=== PATIENT | female | born 1955 | race Caucasian/White ===

== ENCOUNTER 2023-05-10 10:36 | Outpatient (CLI) | payer MEDICARE, OTHER | END 2023-05-10 10:37 | disposition home or self-care (01) | LOC: CSHRAD 10:36 | PROVIDERS: ATTEND Neurological Surgery | DX: M48.062 Spinal stenosis, lumbar region with neurogenic claudication (principal); Z98.890 Other specified postprocedural states | CPT/HCPCS: 72100 ==

== ENCOUNTER 2023-09-25 09:57 | Outpatient (CLI) | payer OTHER | END 2023-09-25 09:58 | disposition home or self-care (01) | LOC: CSHRAD 09:57 | PROVIDERS: ATTEND Neurological Surgery | DX: M47.26 Other spondylosis with radiculopathy, lumbar region (principal); Z98.890 Other specified postprocedural states | CPT/HCPCS: 72100 ==